=== PATIENT | female | born 1990 | race Caucasian/White ===

== ENCOUNTER 2023-01-18 11:43 | Emergency (ER) | payer MEDICAID ==
[~2023-01-18 11:43] MED LIST: COGENTIN1 MG PO; DEPAKOTE125 MG PO; RISPERDAL4 MG PO; TRAZODONE100 MG PO
== END 2023-01-18 17:00 | disposition home or self-care (01) ==
LOC: ED 11:43
DX: S92.902A Unspecified fracture of left foot, initial encounter for closed fracture (principal); Z98.890 Other specified postprocedural states; W10.9XXA Fall (on) (from) unspecified stairs and steps, initial encounter; Y93.89 Activity, other specified; Y92.009 Unspecified place in unspecified non-institutional (private) residence as the place of occurrence of the external cause; Y99.8 Other external cause status